=== PATIENT | female | born 1990 | race African-American/Black ===

== ENCOUNTER → 2016-03-19 | Outpatient (CLI) | payer MEDICAID ==
[~2016-03-19] MED LIST: IOHEXOL 300 MG/ML 100ML BOTTLE IJ ONE; LEV500T PO; METR500T PO; ONDA4TAB5 PO; Pantoprazole Sodium Sesquihydr PO; SACC250C PO
== END | disposition home or self-care (01) ==
LOC: XY 09:12
PROVIDERS: ATTEND Surgery
DX: R10.11 Right upper quadrant pain (principal); Z90.49 Acquired absence of other specified parts of digestive tract
CPT/HCPCS: 47532; Q9967

== ENCOUNTER 2023-03-10 17:41 | Emergency (ER) | payer SELFPAY ==
[~2023-03-10] VITALS: Ht 162.6 cm; Wt 89.0 kg
[~2023-03-10 17:41] MED LIST changes: -IOHEXOL 300 MG/ML 100ML BOTTLE IJ ONE; +ONDA-144 PO; -ONDA4TAB5 PO
[2023-03-10] MEDS ORDERED: ACETAMINOPHEN 325 MG TAB PO ONE (19:30)
[2023-03-10 19:38] LABS: Urine Epithelial Cast None Seen /hpf (<5)
[2023-03-10 20:03] LABS: Urine Bacteria FEW /hpf (None Seen); Urine Blood Negative /uL (Negative); Urine Clarity HAZY (Clear); Urine Color Colorless (Yellow); Urine Mucus FEW (None Seen); Urine Protein, UAD Negative (Negative); Urine Specific Gravity 1.022 (1.001-1.035); Urine Urobilinogen Normal (Negative); Urine WBC 2 /hpf (0 - 5)
[2023-03-10 23:28] VITALS: BP 118/65; PULSE 88; RESP 18; TEMP 98.6; O2SAT 99
== END 2023-03-10 23:32 | disposition home or self-care (01) ==
LOC: ER 17:41
DX: O26.891 Other specified pregnancy related conditions, first trimester (principal); R10.2 Pelvic and perineal pain; J45.909 Unspecified asthma, uncomplicated; Z3A.01 Less than 8 weeks gestation of pregnancy; Z98.890 Other specified postprocedural states; Z88.8 Allergy status to other drugs, medicaments and biological substances; Z79.899 Other long term (current) drug therapy
CPT/HCPCS: 36415; 76801; 81001; 84702

== ENCOUNTER 2023-04-08 17:37 | Emergency (ER) | payer MEDICAID ==
[~2023-04-08] VITALS: Ht 162.6 cm; Wt 89.3 kg
[2023-04-08 19:05] LABS: Basophils # (auto) 0 10 ^3/uL (0-0.2); Basophils % (auto) 0.5 % (0.0-2.0); Eosinophils # (auto) 0 10 ^3/uL (0-0.8); Eosinophils % (auto) 0.8 % (0.0-7.0); Hematocrit 31.5 % (36.0-46.0); Hemoglobin 10.1 g/dL (12.2-16.2); Lymphocytes # (auto) 1.1 10 ^3/uL (0.4-5.4); Lymphocytes % (auto) 20.3 % (10.0-50.0); Mean Corpuscular Hemoglobin 25.8 pg (28.0-32.0); Mean Corpuscular Hgb Conc. 32.2 g/dL (32.0-36.0); Monocytes # (auto) 0.4 10 ^3/uL (0-1.3); Monocytes % (auto) 8.2 % (0.0-12.0); Neutrophils # (auto) 3.8 10 ^3/uL (1.6-8.6); Neutrophils % (auto) 70.2 % (37.0-80.0); Red Blood Cells 3.94 10^6/uL (4.0-5.20); White Blood Cell 5.3 10^3/uL (4.4-10.8)
[2023-04-08 21:17] VITALS: BP 113/67; PULSE 18; RESP 18; TEMP 98.3; O2SAT 100
== END 2023-04-08 21:19 | disposition home or self-care (01) ==
LOC: ER 17:37
DX: O20.0 Threatened abortion (principal); R10.2 Pelvic and perineal pain; J45.909 Unspecified asthma, uncomplicated; Z3A.11 11 weeks gestation of pregnancy; Z88.1 Allergy status to other antibiotic agents; Z90.49 Acquired absence of other specified parts of digestive tract
CPT/HCPCS: 36415; 76801; 84702; 85025